=== PATIENT | male | born 1945 | race Caucasian/White ===

== ENCOUNTER 2016-12-14 22:00 | Inpatient (IN) | payer MEDICARE, MEDICAID ==
[~2016-12-14] VITALS: Ht 182.9 cm; Wt 88.4 kg
--- NOTE | ~2016-12-14 | CON ---
PATIENT'S NAME: MONROE CASANOVA [facility] AGE: 71 Y [address] ROOM: [place] [address] [place] [facility] [place] DATE: 12/15/2016 Consultation DISCHARGE DATE: FAMILY PHYSICIAN: Russell Camacho MD ATTENDING PHYSICIAN: SAMMY AVILEZ DATE OF CONSULTATION: 12/15/2016 REFERRING PHYSICIAN: Humza Rincon NEPHROLOGY CONSULTATION REQUESTING PHYSICIAN: Sammy Avilez MD. REASON FOR CONSULTATION: End-stage renal failure patient, on peritoneal dialysis. HISTORY OF PRESENT ILLNESS: The patient is a 71-year-old white male with an endstage renal failure from diabetes and cardiorenal syndrome. He was initially on hemodialysis and unfortunately he had several cardiac arrest episodes and he was switched over to peritoneal dialysis. His peritoneal dialysis was running well until recently he developed hypotensive episode and he had fallen and fractured his ribs on the left side. I saw him in the office approximately a week ago. At that time I saw, he was hypotensive, his antihypertensive medicine had been discontinued. We put him on ProAmatine 10 mg a day and I also started using all 1.5% solution for peritoneal dialysis. The patient was taking quite a bit of narcotics and I advised him to discontinue those narcotics. He felt really poorly over the last couple days. He has very poor appetite and his blood pressure is running systolically in the 80s. He got admitted through the emergency room last night because of generally failure to thrive and low blood pressure. ALLERGIES: ALLERGIC TO HEPARIN. MEDICATIONS: 1. Uloric 40 mg a day. 2. Aspirin 81 mg a day. 3. Tylenol 650 mg q.4 hours p.r.n. 4. Midodrine 10 mg 3 times a day. 5. Colace 100 mg twice a day. 6. Renvela six tablets 3 times a day with food. 7. Vernon-3 fatty acid two tablets every day. 8. Levemir 42 units subcu q.h.s. 9. Calcium carbonate one tablet q.6 hours p.r.n. heartburn. PATIENT'S NAME: MONROE CASANOVA [facility] AGE: 71 Y [address] ROOM: [place] [address] [place] [facility] [place]: 12/15/2016 Consultation DISCHARGE DATE: FAMILY PHYSICIAN: Russell Camacho MD ATTENDING PHYSICIAN: SAMMY AVILEZ PAST MEDICAL HISTORY: 1. End-stage renal failure on peritoneal dialysis. 2. History of cardiac arrest, on hemodialysis. 3. Diabetes mellitus. 4. Chronic congestive heart failure from systolic dysfunction, ejection fraction of 15% to 20%. 5. History of hypertension. 6. History of fall. PAST SURGICAL HISTORY: Peritoneal dialysis catheter placement, tunneled dialysis catheter placement, biventricular AICD placement, renal cell carcinoma, status post ablation. REVIEW OF SYSTEMS: GENERAL: He denies any fever or chills. He has been tired. His reports that he feels cold all the time. HEENT: Denies any sore throat or sinus congestion. CARDIOVASCULAR: Denies any chest pain or dyspnea on exertion. RESPIRATORY: Denies any shortness of breath, cough, or wheezing. GI: Has poor appetite. : He does not make much urine. MUSCULOSKELETAL: He has left-sided rib pain. SKIN: Denies any rash or pruritus. Denies any allergies or hay fever. HEMATOLOGIC/LYMPHATIC: Denies any lymph node enlargement, easy bruising. ENDOCRINE: Denies any heat or cold intolerance. PSYCH: Denies any sadness, crying spells, poor concentration, or panic attack. SOCIAL HISTORY: The patient lives at home with his . He is a nonsmoker and does not drink any alcohol. FAMILY HISTORY: Father had diabetes. Mother had leukemia and diabetes. No history of kidney disease or dialysis. PHYSICAL EXAMINATION: GENERAL APPEARANCE: A 71-year-old, lean and thin white male, lying in the hospital bed, looks pale. VITAL SIGNS: Temperature 97.5, pulse 73, systolic blood pressure 116, diastolic 57. HEAD: Normocephalic. HEENT: Pupils are round, equal, normal eyelids and pale conjunctivae. Oral cavity clear. Dry mucosa. Trachea is central. No thyromegaly. No bruit. HEART: Sounds are audible in all the areas without any gallop or murmur. There is no pericardial rub. Pulse regular rhythm. He has an ICD in the PATIENT'S NAME: MONROE CASANOVA [facility] AGE: 71 Y [address] ROOM: [place] [address] [place]: [facility] [place] DATE: 12/15/2016 Consultation DISCHARGE DATE: FAMILY PHYSICIAN: Russell Camacho MD ATTENDING PHYSICIAN: SAMMY AVILEZ chest, on the left side. ABDOMEN: Soft, nontender. I could not palpate liver or spleen. No abdominal bruit. EXTREMITIES: No clubbing or cyanosis. SKIN: No sign of vasculitis. LYMPHATICS: Did not examine lymphatics. HIGHER PSYCHIATRIC FUNCTION: He has normal speech and memory. LABORATORY DATA: WBC 9.5, hemoglobin 16.7, hematocrit 54.1, and platelet count of 295, glucose 177. BUN of 49, creatinine of 9.5. Sodium 132, potassium 2.9, chloride 93, bicarbonate 23, calcium 8.1, albumin of 2.6, magnesium 1.9, GFR of 5. ASSESSMENT: 1. End-stage renal failure on peritoneal dialysis. 2. Failure to thrive. Most likely, because of his underlying chronic congestive heart from systolic dysfunction as well as uremia. He has also been in a relatively hypotensive. 3. Cylo-pa-pkhungrq dehydration. 4. Hypokalemia. 5. History of fall. 6. Chronic congestive heart failure from systolic dysfunction. 7. Hyperuricemia. PLAN: The patient appears slightly dehydrated. I will use only 1.5% solution for peritoneal dialysis at this time. He already received oral potassium for his hypokalemia. His low systolic blood pressure could be explained by his poor systolic function of the heart. He also check his TSH and adrenal axis. The patient could benefit from physical therapy for strengthening and balance improvement. I would like to thank Dr. Verma for allowing me to participate in this patient's care. M MD ALYSON CHAPARRO/awais /[id number] d: 12/15/16 1845 t: 12/22/16 1040, CONSULTATION REPORT
--- NOTE | ~2016-12-14 | ECHO ---
Transthoracic Echocardiography Report (TTE) Demographics Patient Name MONROE CASANOVA Date of Study 12/16/2016 Patient Number [id number] Visit Number [id number] Date of 1945 Room Number G3215 Accession Number [id number] Gender Male Age 71 year(s) Referring Luzma Bajwa MD Speech Lang Path Charlotte Acevedo RVT Physician Willy Bailey RD, RVT Physician Interpreting Tiffanie Balbuena Basket Mender Physician Trista Lala MD Supervising Ordering Physician Keke Amato PA-C, MD/MLP Nurse Stress Foundry Tender Conclusions Summary Technically difficult exam with suboptimal images. Definity contrast used to evaluate LV apex better. Severely reduced LV systolic function. The estimated left ventricular ejection fraction is 15%. Severe global LV hypokinesis with regional wall motion abnormalities. No evidence of LV apical thrombus. Moderate left ventricular hypertrophy. Diastolic function indeterminate. The left atrium is mildly dilated by LA volume index measurement. Normal right atrial size. Device lead seen in the right atrium. IVC measures 1.2 cm with inspiratory collapse. Suboptimal subcostal window to evaluate the IVC and interatrial septum. Procedure Type of Study TTE procedure:2D Echocardiogram, Echo with Contrast. Procedure Date Date: 12/16/2016 Start: 08:26 AM Study Location: Inpatient Portable Technical Quality: Adequate visualization Indications:Low EF. Patient Status: Routine Contrast Medium: Definity. Amount - 7 ml HR: 70 bpm BP: 115/74 mmHg M-Mode/2D Measurements LV Diastolic Dimension: 4.61 cm LV Systolic Dimension: 4.02 cm LV Septum Diastolic: 1.39 cm LV PW Diastolic: 1.53 cm AV Cusp Separation: 1.3 cm Cardiac Output: 4.12 l/min LA Dimension: 4.3 cm LVOT: 2.2 cm LVOT VTI: 15.5 cm LV Stroke volume: 58.89 ml Doppler Measurements AV Peak Velocity: 0.88 m/s MV Peak E-Wave: 0.69 m/s AV Peak Gradient: 3.1 mmHg AV Mean Gradient: 2 mmHg MV P1/2t: 88 msec LVOT Peak Velocity: 0.9 m/s TR Velocity:2.38 m/s TR Gradient:22.66 mmHg Estimated PASP: 32.66 mmHg Estimated RAP:10 mmHg A' Lateral Velocity: 0.12 m/s Estimated RVSP: 33 mmHg E' Septal Velocity: 0.08 m/s E' Lateral Velocity: 0.05 m/s Findings Left Ventricle Moderate concentric left ventricular hypertrophy. Diastolic function indeterminate. Contrast images show no evidence of apical thrombus. Right Ventricle Normal right ventricle structure and function. Device lead noted in the right ventricle. Left Atrium The left atrium is mildly dilated by LA volume index measurement. Right Atrium Normal right atrial size. Device lead seen in the right atrium. IVC measures 1.2 cm with inspiratory collapse. Mitral Valve Trivial mitral regurgitation by color Doppler. Aortic Valve The aortic valve was not well imaged. Tricuspid Valve Mild tricuspid regurgitation by color Doppler. Pulmonic Valve Pulmonic valve is not well seen. Pericardial Effusion No evidence of pericardial effusion. Miscellaneous Suboptimal subcostal window to evaluate the IVC and interatrial septum. Pleural Effusion Pleural effusion present. Signature dtt: ANANTH BARNARD dtd: 12/16/16 0826 Physician Self Edit
--- NOTE | ~2016-12-14 | HP ---
PATIENT'S NAME: MONROE CASANOVA [facility] AGE: 71 Y [address] ROOM: [address] [address] [place] [facility] [place]: 12/15/2016 History & Physical DISCHARGE DATE: FAMILY PHYSICIAN: Russell Camacho MD ATTENDING PHYSICIAN: ALONDRA AVILEZ DATE OF SERVICE: CHIEF COMPLAINT: Generalized weakness, decreased appetite, runny nose, nausea, and lightheadedness. HISTORY OF PRESENT ILLNESS: This is a 71-year-old male, who says that for the past three weeks, he has been feeling sick in general what he describes as lightheadedness, decreased appetite, runny nose, nausea, malaise, and just not feeling well in general. The patient has a history of end-stage renal disease. Occasionally, he still makes a little urine in a day, and he is on peritoneal dialysis. He has never felt like this before, and he also denies any recent sick contacts. He specifically denies any pain around the peritoneal dialysis area or any fever. However, he does complain of feeling chills for the last three weeks as well. He denies any chest pain, cough, shortness of breath, palpitation, diaphoresis, leg edema, abdominal pain or rigidity, nausea, vomiting, diarrhea, or constipation. He just feels that he does not feel well in general, and he cannot really know what is going on with him. REVIEW OF SYSTEMS: As mentioned in the history of present illness. All other systems were reviewed and are negative except those mentioned in the history of present illness. PAST MEDICAL HISTORY: 1. Heparin-induced thrombocytopenia, type 2. 2. End-stage renal disease, on peritoneal dialysis. 3. History of cardiac arrest on dialysis in the past. 4. Diabetes mellitus, type 2. 5. Chronic systolic heart failure. 6. Hypertension. 7. History of a non-ischemic cardiomyopathy with a left ventricular ejection fraction of 15% to 20%, status post AICD automatic implantable cardioverter-defibrillator implantation. 8. Left heart catheterization in 2012 showed normal coronaries. PAST SURGICAL HISTORY: 1. Currently, on peritoneal dialysis for his end-stage renal disease. PATIENT'S NAME: MONROE CASANOVA [facility] AGE: 71 Y [address] ROOM: [address] [address] [place] [facility] [place]: 12/15/2016 History & Physical DISCHARGE DATE: FAMILY PHYSICIAN: Russell Camacho MD ATTENDING PHYSICIAN: ALONDRA AVILEZ 2. Status post biventricular AICD automatic implantable cardioverter- defibrillator implantation. 3. Renal cell carcinoma, status post ablation. ALLERGIES: HEPARIN, WHICH CAUSES CARDIAC ARREST DURING DIALYSIS AND ALSO CAUSES HEPARIN- INDUCED THROMBOCYTOPENIA, TYPE 2. HOME MEDICATIONS: 1. Tylenol 650 mg p.o. every four hours p.r.n. for pain or fever. 2. Aspirin 81 mg p.o. daily. 3. Calcium carbonate one tablet p.o. every 6 hours p.r.n. for heartburn. 4. Colace 100 mg p.o. b.i.d. 5. Uloric 40 mg p.o. daily. 6. Lasix 80 mg two tablets every morning and Lasix 80 mg one tablet p.o. every evening. 7. Insulin Levemir 42 units subq every night at bedtime. 8. Midodrine 10 mg p.o. daily. 9. [place] fish oil 1000 mg two tablets p.o. every day. 10. Renvela 800 mg six tablets 3 times daily. 11. Castoria 30 mL p.o. b.i.d. SOCIAL HISTORY: He denies any cigarette use or alcohol use or illegal drugs in the past or in the present. FAMILY HISTORY: His father had diabetes and also alcohol use disorder. His mother had leukemia and also diabetes. PHYSICAL EXAMINATION: VITAL SIGNS: At the time of my dictation, blood pressure was 143/73, temperature was 97.6, heart rate was 70, respirations were 14, and saturations were 96% on room air. GENERAL APPEARANCE: Alert and oriented x3, in no acute distress. HEENT: Pupils are equally round and reactive to light. Extraocular muscles are intact. Anicteric sclerae. Nasal turbinates are normal bilaterally. Moist oral mucosa. No oral thrush. No oropharyngeal exudate or erythema. NECK: No JVD jugular venous distention. No neck stiffness. No cervical lymphadenopathy. RESPIRATORY: Clear. Chest wall was nontender to palpation. CARDIOVASCULAR: Regular rate and rhythm. Normal S1 and S2. No murmurs. No rubs. No gallops. SKIN: The AICD automatic implantable cardioverter-defibrillator implantation area is non-tender to touch and also is not erythematous. No ulcer. No PATIENT'S NAME: MONROE CASANOVA [facility] AGE: 71 Y [address] ROOM: [address] [place], [place] [address] [place] [facility] [place]: 12/15/2016 History & Physical DISCHARGE DATE: FAMILY PHYSICIAN: Russell Camacho MD ATTENDING PHYSICIAN: ALONDRA AVILEZ cyanosis. No rash. ABDOMEN: Soft, mildly tender to palpation in the right upper quadrant, and nondistended. No rigidity. Bowel sounds were decreased. No hepatosplenomegaly. No rebound tenderness. There is no tenderness in the area surrounding the peritoneal dialysis site. No findings to suggest peritonitis. EXTREMITIES: No edema in upper or lower extremities. NEUROLOGICAL: Grossly nonfocal. MUSCULOSKELETAL: No joint pain. No muscle pain. Range of motion was intact. LABORATORY DATA: Lactic acid was 2.4. The pH is 7.39. Ammonia of 17. CPK was 157 followed by 150. Troponin is 0.204 followed by 0.204. ProBNP of 46,473. White blood cells of 11.2, hemoglobin of 17.3, hematocrit of 55.3, MCV of 92.3, and platelets of 308. Glucose is 224, BUN is 46, creatinine is 9.5, sodium is 129, potassium is 3.0, chloride is 91, CO2 is 21, calcium is 8.1, total protein is 8.2, albumin is 2.6, AST is 29, ALT is 35, alkaline phosphatase is 82, total bilirubin is 0.7, magnesium is 1.9, GFR glomerular filtration rate is 5, and anion gap is 20. INR was 1.5 and PTT was 31. CK-MB of 5.8 followed by 5.3. TSH thyroid-stimulating hormone was 5.530. CRP C-reactive protein is 0.96. Procalcitonin is 0.65. IMAGING STUDIES: Chest x-ray performed on admission on December 14, 2016, official reading is pending. Based on my review, no gross abnormality. EKG on admission showed a paced rhythm with heart rate at 69 beats per minute. ASSESSMENT AND PLAN: 1. Sepsis secondary to unclear source. I will cover him broadly with IV vancomycin, IV Zosyn, and IV Levaquin for sepsis from unclear source. PATIENT'S NAME: MONROE CASANOVA [facility] AGE: 71 Y [address] ROOM: [address] [place], [place] [address] [place] [facility] [place]: 12/15/2016 History & Physical DISCHARGE DATE: FAMILY PHYSICIAN: Russell Camacho MD ATTENDING PHYSICIAN: ALONDRA AVILEZ Blood culture, two sets right now. I will check a CT of abdomen and pelvis without contrast, given that he has some mild right upper quadrant tenderness and also right lower quadrant tenderness on palpation. I do not think this is peritonitis, given that he has no rigidity, and the area surrounding the peritoneal dialysis site is not tender. The patient is alert and oriented x3, and he looks acutely ill and he looks in mild distress, but not encephalopathic. His blood work does show he has sepsis with elevated lactic acid and also leukocytosis, and also a mildly elevated procalcitonin. However, currently based on the history he gave me and on physical examination, no clear source of infection so far. Therefore, blood culture two sets will be obtained. He will have a broad coverage with the antibiotics as I mentioned before. I will be checking the labs again including lactic acid, procalcitonin, CBC complete blood count with differential, A1c, BMP basic metabolic panel, magnesium, and phosphorus in the morning. I will get a urinalysis and also urine culture. I will check the influenza nasal antigen swab. There is no cough, therefore, I am not going to collect a sputum culture or Gram stain. Further plan depends on clinical course. For the fluids, he is septic. Lungs are clear. X-ray looked clean. In the setting of sepsis and ESRD, we are giving a low rate of IV fluids with the lactated Ringer. Further plan depends on clinical course. 2. Regarding his hypothyroidism: I will start him on the levothyroxine 50 mcg p.o. daily. He does have a cardiac history. Therefore, I do not want to give him a dose that is too high, which can provoke arrhythmia. He needs to have a TSH thyroid-stimulating hormone checked in six weeks as outpatient and titrate the levothyroxine dose by the primary care physician. 3. Regarding his hypokalemia, he has end-stage renal disease. However, potassium is 3.0. I will replace him carefully with the potassium chloride tablet. 4. End-stage renal disease, on peritoneal dialysis. I will consult Nephrology in the morning for dialysis. Currently, the patient is not in volume overload. He is saturating 98% on room air. There is no cough. No shortness of breath. Lungs are clear. Chest x-ray was clear. In the setting of sepsis of unclear source, I will give him IV fluids with lactated Ringer at 50 mL/hr because he is also getting broad-spectrum antibiotics coverage with IV Levaquin and IV Zosyn and IV vancomycin until we have a more definitive source of sepsis. The patient will continue with telemetry monitoring. He has AICD automatic implantable cardioverter defibrillator in place, and the automatic implantable cardioverter-defibrillator does not look infected. There is no tenderness. There is no warmth. There is no erythema. 1. For the lightheadedness, the patient could be dehydrated. Therefore, I will be checking for orthostatic vital signs. The patient will be on fall precaution. PATIENT'S NAME: MONROE CASANOVA [facility] AGE: 71 Y [address] ROOM: [place] [address] [place] [facility] [place]: 12/15/2016 History & Physical DISCHARGE DATE: FAMILY PHYSICIAN: Russell Camacho MD ATTENDING PHYSICIAN: ALONDRA AVILEZ Further plan depends on clinical course. Time spent on the day of admission was 40 minutes including chart review, interviewing and examining the patient, addressing all the questions and concerns that the patient and the patient's had at the bedside, and going over the plan of care with the patient and the patient's . ALONDRA AVILEZ MD CC/modl /[id number] D: T: HISTORY & PHYSICAL
--- NOTE | ~2016-12-14 | ER ---
PATIENT'S NAME: MONROE CASANOVA [facility] AGE: 71 Y [address] ROOM: [place] [address] LOCATION: [facility] ADMIT DATE: 12/15/2016 ER/Outpatient Report DISCHARGE DATE: FAMILY PHYSICIAN: Russell Camacho MD ATTENDING PHYSICIAN: ALONDRA AVILEZ Admission date and time are documented in the medical record. I saw the patient at 2220 hours. CHIEF COMPLAINT: Generalized weakness, lightheadedness, dizziness with positional changes, end- stage renal failure on peritoneal home dialysis, extreme nausea, cold, chills. HISTORY OF PRESENT ILLNESS: This patient is a 71-year-old male from [place], [place]. The patient has been feeling ill for 2-3 weeks. He has had a dwindling course. Denies any cough, shortness of breath, or chest pain. Denies any fever. Does have cold, chills, and some sweats, but no elevated temperature. Does have lightheadedness, dizziness with occasional positional vertigo. No headache, eyes, ears, nose, throat, neck, or spine pain. No abdominal pain. He has extreme nausea, but no vomiting or diarrhea. Does not make urine. Does have end-stage renal disease. Does do home peritoneal dialysis. Again, denies any abdominal pain or fever. No back pain. No joint or muscle swelling, redness, or pain. No skin eruptions or rash. Does have insulin-dependent diabetes mellitus. No other endocrine problems. No psych issues other than some possible depression. No neuro changes. HOME MEDICATIONS: See attached medication list. ALLERGIES: NONE. SOCIAL HISTORY: Nonsmoker and nondrinker. SIGNIFICANT PAST MEDICAL HISTORY: Congestive heart failure, hypertension, valvular heart disease with mitral regurg, pulmonary hypertension, cardiac arrest, end-stage renal disease on peritoneal dialysis, noninsulin dependent diabetes mellitus type 2, systolic congestive heart failure, syncope, near syncope, nonischemic cardiomyopathy, dyslipidemia, and neuropathy. OPERATIONS: Cardiac catheterization, peritoneal dialysis catheter placement, and ICD placement. PATIENT'S NAME: MONROE CASANOVA [facility] AGE: 71 Y [address] ROOM: [place] [address] LOCATION: [facility] ADMIT DATE: 12/15/2016 ER/Outpatient Report DISCHARGE DATE: FAMILY PHYSICIAN: Russell Camacho MD ATTENDING PHYSICIAN: ALONDRA AVILEZ REVIEW OF SYSTEMS: All systems reviewed by me are negative with the exception of those discussed in the history of the present illness. PHYSICAL EXAMINATION: VITAL SIGNS: Temperature 97.2, tympanic, pulse 70, regular, respirations 16, blood pressure 142/71, and O2 sat on room air is 96%. HEAD: Normocephalic. EYES: Extraocular muscles intact. PERRL. Sclerae and conjunctivae clear, nonicteric. EARS: Clear TMs bilaterally. NOSE: Clear. THROAT: Clear. Mucous membranes dry. NECK: No nuchal rigidity. No thyromegaly or cervical adenopathy. LUNGS: Clear. No rales, rhonchi, or wheezes. HEART: Regular. Pulses are palpable. No chest wall or ribcage pain to palpation. ABDOMEN: Soft, nondistended, nontender. Good bowel tones. No organomegaly or abnormal mass palpable. No CVA tenderness. EXTREMITIES: Without peripheral edema, cyanosis, or deformity. NEUROVASCULAR: Intact. SKIN: Clear. No skin eruptions or rash. DIAGNOSTIC DATA: EKG showed pacer rhythm, 100% capture. Chest x-ray showed no acute infiltrate or changes. We will review x-ray with the radiologist. LABORATORY DATA: White count is 11,200, 79 segs, 10 lymphs, 9 monos, 1 eo, hemoglobin is 17.3 with hematocrit 55.3, and platelet count is 308,000. PTT was 31, pro-time was 15.8 with an INR 1.5. CMS showed a low sodium 129, low potassium 3.0, low chloride 91, low CO2 content of 21, elevated anion gap of 20, elevated glucose at 224, low calcium 8.1, elevated BUN of 46, elevated creatinine 9.5, low GFR of 5, and magnesium 1.9. CPK was 157, initial CK-MB was 5.8 with a troponin of 0.20, 2-hour cardiac enzymes showed a CPK of 150, CK-MB of 5.3, with a troponin I of 0.204. CRP was 0.96, TSH was 5.53, pro-BNP was 46,473. Procalcitonin was 0.65, lactate was 2.4. Venous pH was 7.39. Serum ammonia level was 17. IMPRESSION: 1. End-stage renal failure, on home peritoneal dialysis with lightheadedness, dizziness, and occasional positional vertigo. He has hyponatremia with a sodium of 129. He has hypokalemia with a potassium of 3.0. He has hypocalcemia with a calcium of 8.1. BUN is high at 46 with a creatinine 9.5. His GFR is 5. PATIENT'S NAME: MONROE CASANOVA [facility] AGE: 71 Y [address] ROOM: [place] [address] LOCATION: [facility] ADMIT DATE: 12/15/2016 ER/Outpatient Report DISCHARGE DATE: FAMILY PHYSICIAN: Russell Camacho MD ATTENDING PHYSICIAN: ALONDRA AVILEZ 2. Systolic congestive heart failure. Pro-BNP was 46,473. 3. Essential hypertension. 4. Pulmonary hypertension. 5. Valvular heart disease with mitral regurgitation. 6. Nonischemic cardiomyopathy with ejection fraction of 10-15. 7. Syncope with near syncope. 8. Gmc-vqlrvqs-hibvfjupn diabetes mellitus type 2. PLAN: I did get a word that Dr. Rincon the patient's elastic assembler wanted him admitted to the hospital. I did discuss the patient with Dr. Avilez, hospitalist. Dr. Avilez is going to admit the patient to [facility] for further evaluation and treatment. I did start the patient on IV normal saline, fluids at 125 mL an hour. The patient is resting fairly comfortably at this time, but does not feel very good at all. I did discuss my findings and recommendations with the patient and he understands. The patient will be admitted to [facility]. MD PEACE HIGUERA/modl /[id number] d: 12/15/164 t: 12/15/16 183, OUTPATIENT REPORT
--- NOTE | ~2016-12-14 | DS ---
PATIENT'S NAME: MONROE CASANOVA [facility] AGE: 71 Y [address] ROOM: [id number] [place] [address] [address]: [facility] ADMIT DATE: 12/15/2016 Discharge Summary DISCHARGE DATE: 12/16/2016 FAMILY PHYSICIAN: Russell Camacho MD ATTENDING PHYSICIAN: Sammy Segal PRINCIPAL DISCHARGE DIAGNOSIS: Nonischemic cardiomyopathy. SECONDARY DIAGNOSES: 1. End-stage renal disease. 2. Diabetes mellitus, poorly controlled, hemoglobin A1c 8.9. 3. Recent weight loss. 4. Peripheral neuropathy. 5. Anorexia. CONSULTATIONS: Dr. Rincon, Nephrology, on 12/15/2016. PROCEDURES: Echocardiogram shows some reduced EF of 15% with no thrombus. BRIEF HISTORY: Mr. Casanova is a 71-year-old male who has had generalized malaise, lightheadedness, decreased appetite, runny nose, and weight loss of about 10-12 pounds. He was advised by the dialysis nurses that he should present to the emergency room when he came here from [place], [place]. On admission here, he was found to have mildly elevated procalcitonin, a white blood cell count of 11.2, hemoglobin 17.3, and platelets 308. Lactic acid was 2.4, pH 7.39, ammonia was 17. Troponin initially was 0.204 and followed by 0.204. Today, it was repeated and was 0.150. His hemoglobin A1c was 8.9. Pro- BNP was 46,473. The patient was admitted for further observation, management, and treatment. He was started on broad-spectrum antibiotics. Blood cultures are negative to-date. His peritoneal counts were clear yellow and only 50 white blood cells. Abdomen and pelvis CT showed some free fluid and some air, but not any more than might be expected. The patient had his complete blood count this morning showed a normal white blood cell count 7.7, hemoglobin 15.1, hematocrit 48.0, and platelets 276. His phosphorus was 3.4, sodium was 132, potassium 3.5, chloride 96, glucose 162, BUN 49, and creatinine 9.4. The TSH was 5.8. The patient admitted he had stopped taking his thyroid medicine. There was some question based on his symptoms whether he had renal insufficiency. A.m. cortisol was 15.3. The patient has been given referral to outpatient visit with prototype engineer manager prior to this and they were encouraged to follow up with that. After review of data today, Dr. Rincon felt like it sounds as if the patient was ready to go home, his blood pressure was much improved, and he is feeling much better. PATIENT'S NAME: MONROE CASANOVA [facility] AGE: 71 Y [address] ROOM: [place] [address] LOCATION: [facility] ADMIT DATE: 12/15/2016 Discharge Summary DISCHARGE DATE: 12/16/2016 FAMILY PHYSICIAN: Russell Camacho MD ATTENDING PHYSICIAN: Sammy Segal After discussion with Cardiology office regarding the nature of his cardiomyopathy being nonischemic, I advised the patient that he needs to follow up with them as soon as possible so that they can try to optimize management of his severe nonischemic cardiomyopathy. The patient, his significant other, and Dr. Rincon are all in agreement with this plan. I spoke by phone with Dr. Manuel Us who provided the history that his cardiomyopathy was nonischemic type. INSTRUCTIONS AT DISCHARGE: 1. Renal low-fat diet, low-carb ADA. 2. Activities as tolerated. Walking with assistance only. He uses a walker. 3. Follow up with Dr. Rincon as previously planned, Dr. Nathan in [facility] as soon as possible. He should see Russell Camacho, his primary care provider, within a week of discharge. MEDICATIONS AT DISCHARGE: 1. Delflex peritoneal dialysis fluids. 2. Aspirin 81 mg as prior to admission. 3. Docusate 100 mg p.o. twice daily. 4. Uloric 40 mg daily. 5. Gabapentin 100 mg t.i.d. 6. Detemir insulin 42 units at bedtime. 7. Levothyroxine 50 mcg daily. 8. Midodrine 10 mg daily. 9. [place] fish oils daily. 10. Potassium chloride 10 mEq tabs 40 mEq dose. 11. Senna at h.s. for constipation. 12. Renvela 4800 mg 3 times daily with meals. 13. Lactulose 30 mL p.r.n. constipation. 14. Tylenol p.r.n. 15. Lasix 120 mg every morning and 80 mg every p.m. 16. Calcium carbonate p.r.n. CONDITION AT DISCHARGE: Good. Time spent was greater than 30 minutes. VINCENZO WASHINGTON MD LM/awais PATIENT'S NAME: MONROE CASANOVA [facility] AGE: 71 Y [address] ROOM: [place] [address] LOCATION: [facility] ADMIT DATE: 12/15/2016 Discharge Summary DISCHARGE DATE: 12/16/2016 FAMILY PHYSICIAN: uRssell Camacho MD ATTENDING PHYSICIAN: Sammy Segal /[id number] d: 12/17/16 0441 t: 12/19/16 1305, DISCHARGE SUMMARY
[~2016-12-14 22:00] MED LIST: ASPIRIN LO-DOSE81 MG PO; ATIVAN 0.5MG0.5 MG PO; COREG6.25 MG PO; GLUCOPHAGE500 MG PO; NEURONTIN100 MG PO; NORCO 5-325 MG1 TAB PO; PROAIR HFA8.5 GM INH; TRADJENTA5 MG PO; TYLENOL EXTRA500 MG PO; TYLENOL325 MG PO; ULORIC40 MG PO
[2016-12-14 23:09] LABS: LACTATE 2.4 mEq/L (0.50-1.60)
[2016-12-14 23:10] LABS: BASOPHIL # 0.1 K/uL (0.0-0.2); BASOPHIL % 0.4 %; EOSINOPHIL # 0.1 K/uL (0.0-0.5); EOSINOPHIL % 0.7 %; HEMATOCRIT 55.3 % (37.0-53.0); HEMOGLOBIN 17.3 g/dL (11.0-16.0); IMMATURE GRANULOCYTE # 0.2 K/uL (0.0-0.3); IMMATURE GRANULOCYTE % 1.3 %; LYMPHOCYTE # 1.1 K/uL (0.8-4.0); MCH 28.9 pg (27.0-34.0); MCHC 31.3 gm/dL (32.0-36.5); MCV 92.3 fl (83.0-98.0); MONOCYTE % 8.9 %; MPV 9.9 fl (9.4-12.4); NEUTROPHIL # (ANC) 8.8 K/uL (1.4-9.0); NEUTROPHIL % 78.7 %; NRBC % 0 /100WBC (0-0.00); PLATELET COUNT 308 K/uL (150-450); RDW-CV 16.4 % (11.9-14.6); WBC 11.2 K/uL (4.0-11.0)
[2016-12-14 23:12] LABS: RBC 5.99 M/uL (3.50-5.50)
[2016-12-14 23:20] LABS: INR - (THERAPEUTIC) 1.5 (0.9-1.1); PROTIME 15.8 SECONDS (9.6-11.1); PTT 31 SECONDS (25-32)
[2016-12-14 23:37] LABS: ALBUMIN 2.6 gm/dL (3.5-5.0); CALCIUM 8.1 mg/dL (8.5-10.5); MAGNESIUM 1.9 mg/dL (1.3-2.6); TOTAL BILIRUBIN 0.7 mg/dL (0.0-1.5); TOTAL PROTEIN 8.2 g/dL (6.0-8.4)
[2016-12-14 23:38] LABS: CREATININE 9.5 mg/dL (0.6-1.3)
[2016-12-15] MEDS ORDERED: MIDODRINE HCL10 MG PO (02:44)
[2016-12-15] MEDS ORDERED: COLACE100 MG PO (02:45)
[2016-12-15] MEDS ORDERED: RENVELA800 MG PO (02:46)
[2016-12-15] MEDS ORDERED: FISH OIL 1,0001 EAC1 PO (02:46)
[2016-12-15] MEDS ORDERED: LASIX80 MG PO ×2 (02:48→02:50)
[2016-12-15] MEDS ORDERED: LEVEMIR FL100 UNIT/1 SUB-Q (02:51)
[2016-12-15] MEDS ORDERED: TUMS REGULAR ST1 TAB PO (02:54)
[2016-12-15] MEDS ORDERED: CONSTULOSE10 GM/15 M PO (02:54)
[2016-12-15 06:02] LABS: BASOPHIL # 0.1 K/uL (0.0-0.2); BASOPHIL % 0.6 %; EOSINOPHIL # 0.1 K/uL (0.0-0.5); EOSINOPHIL % 1.4 %; HEMATOCRIT 54.1 % (37.0-53.0); HEMOGLOBIN 16.7 g/dL (11.0-16.0); IMMATURE GRANULOCYTE # 0.1 K/uL (0.0-0.3); IMMATURE GRANULOCYTE % 1.3 %; LYMPHOCYTE # 1.4 K/uL (0.8-4.0); LYMPHOCYTE % 14.4 %; MCH 28.8 pg (27.0-34.0); MCHC 30.9 gm/dL (32.0-36.5); MCV 93.3 fl (83.0-98.0); MONOCYTE # 0.9 K/uL (0.0-1.0); MONOCYTE % 9.4 %; MPV 10.2 fl (9.4-12.4); NEUTROPHIL % 72.9 %; NRBC % 0 /100WBC (0-0.00); PLATELET COUNT 295 K/uL (150-450); RDW-CV 16.2 % (11.9-14.6); WBC 9.5 K/uL (4.0-11.0)
[2016-12-15 06:17] LABS: CALCIUM 8.1 mg/dL (8.5-10.5); MAGNESIUM 1.9 mg/dL (1.3-2.6); PHOSPHORUS 4.7 mg/dL (2.5-4.9)
[2016-12-15 06:20] LABS: ANION GAP 18.9 (10.0-19.0); CREATININE 9.5 mg/dL (0.6-1.3); POTASSIUM 2.9 mMol/L (3.7-5.1)
--- NOTE | 2016-12-15 07:11 | NUR ---
SIGNIFICANT EVENT: Patient alert & oriented. 1PA, stand and pivot. Patient does have own walker that spouse will bring. Potassium and chloride are both low, potassium pills given. R) upper abd tender to palpation - CT obtained this morning, waiting for results. IV to R) lateral FA infusing LR at 50. Hx of CHF, peritoneal dialysis, DMII. Patient lives in [place] at home with spouse. IV Zosyn given, Vanco started. Next will be levequin. at bedside. Patien is pleasant and cooperative with cares.
--- NOTE | 2016-12-15 07:20 | NUR ---
Patient to floor from ER at approx 0210. IV bolus of 500 NS. LR ordered to run at 50 mL/hr - pt very nervous about this as he is concerned about exacerbating his CHF. Pt states falling several times over past few months - most recently on the before s [place]. Fall bracelet on. Patient states feeling dizzy, nauseated, lightheaded and weak. Patient and spouse report driving from [place] last night d/t phone converations held yesterday with renal doc and dialysis nurse. Last food was at about 1500 yesterday and drink was at about 1730. Patient has lots over brusing throughout body but especially arms/legs from previous falls. Pleasant and cooperative with cares.
--- NOTE | 2016-12-15 10:33 | NUR ---
Diabetes center note: 0930 Met with patient and spouse to discuss Diabetes. Diabetes Management booklet provided to patient/spouse with the Diabetes Survival Skills Assessment form to complete. Spouse agrees to assist in completing this form. Patient/spouse report that patient is taking Levemir insulin at home, but is not taking any rapid acting insulin, reports diabetes history x20+ years. Current A1C was 8.9 %, discussed overall control and stressed importance of proper glycemic control to futher reduce risks of complications related to heart, eyes, nerves. Patient is testing blood sugars at home, but infrequently tests.
--- NOTE | 2016-12-15 11:15 | NUR ---
Introduced self/role to patient and his significant other, also introduced student Deyanira. Patient is planning to return home and doesn't think they will need any DME. Will continue peritoneal dialysis. Significant Other worked for [employer] and her daughter is an RN. She stated they no longer have HHC in their area but doesn't think it is needed. Wrote my name on his marker board. No anticipate care management needs.
--- NOTE | 2016-12-15 13:17 | NUR ---
Diabetes Center note: Spouse completed the Diabetes Assessment Form, a copy is applied to the chart. Discussed current A1C 8.9 % with spouse and patient. Spouse reported that Patient takes 42 units of Levemir daily at home, dose here is ordered to have Levemir 21 units AND sliding scale. We will need to continue to follow blood sugars and assess need for further insulin adjustments.
[2016-12-15 17:22] LABS: % PERITONEAL FLUID MONO/MACRO 60 % (0-0); % PERITONEAL FLUID NEUT 19 % (0-25); PERITONEAL FLUID TURBIDITY CLEAR (CLEAR)
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
[2016-12-15] MEDS ORDERED: NEURONTIN100 MG PO (18:10)
--- NOTE | 2016-12-16 03:50 | NUR ---
Significant Event: Pt alert and oriented. UP with SBA, gait belt and walker. S/O at bedside and helps with cares, she also shaved pt last night. Pt c/o consitpation and Lactulose given at HS, results of large bm at 0330 this morning. Peritoneal dialysis per dialysis Nurse early this evening. Initial dosed Neurotin as well, which pt states did help his legs. Ac/Hs SSI with no correction at HS. VSS, afebrile. Follow up: Daily wt, and orthostatics this morning.
[2016-12-16 05:23] LABS: BASOPHIL % 0.5 %; EOSINOPHIL # 0.2 K/uL (0.0-0.5); EOSINOPHIL % 2.2 %; HEMOGLOBIN 15.1 g/dL (11.0-16.0); IMMATURE GRANULOCYTE # 0.1 K/uL (0.0-0.3); IMMATURE GRANULOCYTE % 1.6 %; LYMPHOCYTE % 12.7 %; MCH 29.3 pg (27.0-34.0); MCHC 31.5 gm/dL (32.0-36.5); MCV 93.2 fl (83.0-98.0); MONOCYTE # 0.9 K/uL (0.0-1.0); MPV 9.9 fl (9.4-12.4); NEUTROPHIL # (ANC) 5.6 K/uL (1.4-9.0); NRBC % 0 /100WBC (0-0.00); PLATELET COUNT 276 K/uL (150-450); RBC 5.15 M/uL (3.50-5.50); RDW-CV 15.6 % (11.9-14.6); WBC 7.7 K/uL (4.0-11.0)
[2016-12-16 05:42] LABS: ALBUMIN 2.4 gm/dL (3.5-5.0); ANION GAP 17.5 (10.0-19.0); CREATININE 9.4 mg/dL (0.6-1.3); POTASSIUM 3.5 mMol/L (3.7-5.1); TOTAL BILIRUBIN 0.8 mg/dL (0.0-1.5)
--- NOTE | 2016-12-16 12:51 | NUR ---
Diabetes Consult: Visited with the patient this morning regarding his diabetes. He denies any questions or concerns. Blood sugars range from 131-193. He did have one value of 206. Will continue to monitor.
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
[2016-12-16] MEDS ORDERED: DELFLEX PERIT5000 M1 (17:20)
[2016-12-16] MEDS ORDERED: DELFLEX (17:22)
[2016-12-16] MEDS ORDERED: [UNRECOGNIZED DRUG - OTHER] (17:22)
[2016-12-16] MEDS ORDERED: LEVOTHROID (SY50 MCG PO (17:32)
[2016-12-16] MEDS ORDERED: K-TAB 10MEQ10 MEQ PO (17:35)
[2016-12-16] MEDS ORDERED: SENNA8.6 MG PO (17:36)
--- NOTE | 2016-12-16 18:12 | NUR ---
D:Orders received for patient to be dismissed. I:Dismissal instructions were prepared and reviewed with the patient by the virtual nurse using the computer technology. The following information was reviewed with the patient and his spouse: diet and activity recommendations for home, abnormal s/s to monitor for and to report to MD if any occur, home medications/new prescription medications and plans and need for follow up appointments with Dr. Rincon, Dr. Camacho and Dr. Nathan. José Miguel information given to and reviewed with patient and his spouse on the following topics: Preventing Deep Vein Thrombosis, Levothyroxine, DC Instructions for Chronic Kidney Disease, Healthy Meals for Diabetes, Understanding Carbs, Fats and Proteins, Eating Heart Healthy Foods, and Caring for Your Peritoneal Dialysis Catheter and Exit Site. Encouraged patient to call the MD with any questions or concerns. R:The patient and his spouse verbalized understanding of teaching and denied further questions at the time. P:The patient's primary nurse was informed that the dismissal instructions had been completed and was going to take the paperwork and prescriptions in for the patient to have. The patient will be dismissed this evening. Kaity ALONSO
== END 2016-12-16 18:39 | disposition disaster alternative care site (69) | DRG 314 ==
LOC: GMED 22:00 → GMSU 12-15 01:41
PROVIDERS: Emergency Medicine; Internal Medicine; Internal Medicine Nephrology; Nurse Practitioner Family; ADMIT Internal Medicine
PROC: 3E1M39Z Irrigation of Peritoneal Cavity using Dialysate, Percutaneous Approach (ICD-10-PCS; principal; 2016-12-15)
DX: I42.8 Other cardiomyopathies (principal); N18.6 End stage renal disease; I12.0 Hypertensive chronic kidney disease with stage 5 chronic kidney disease or end stage renal disease; I50.22 Chronic systolic (congestive) heart failure; I27.2 Other secondary pulmonary hypertension; E87.1 Hypo-osmolality and hyponatremia; E87.6 Hypokalemia; E11.22 Type 2 diabetes mellitus with diabetic chronic kidney disease; I34.0 Nonrheumatic mitral (valve) insufficiency; Z86.74 Personal history of sudden cardiac arrest; Z95.810 Presence of automatic (implantable) cardiac defibrillator; Z85.528 Personal history of other malignant neoplasm of kidney; Z79.82 Long term (current) use of aspirin; E03.9 Hypothyroidism, unspecified; K59.00 Constipation, unspecified; E11.42 Type 2 diabetes mellitus with diabetic polyneuropathy; E11.65 Type 2 diabetes mellitus with hyperglycemia; R63.0 Anorexia
CPT/HCPCS: C8929; J1956; J2543; J3370; J7030; J7040; J7050; J7120; Q9957

== ENCOUNTER 2017-04-26 23:39 | Inpatient (IN) | payer MEDICARE, MEDICAID ==
[~2017-04-26] VITALS: Ht 182.9 cm; Wt 88.9 kg
--- NOTE | ~2017-04-26 | HP ---
PATIENT'S NAME: MONROE CASANOVA [facility] AGE: 71 Y [address] ROOM: [id number] [place], [place] [address] LOCATION: [facility] ADMIT DATE: 04/26/2017 History & Physical DISCHARGE DATE: 04/27/2017 FAMILY PHYSICIAN: Russell Camacho MD ATTENDING PHYSICIAN: Nazario Alvarenga V DATE OF SERVICE: SAME DAY HISTORY AND PHYSICAL AND DISCHARGE. CHIEF COMPLAINT: Leg pain. HISTORY OF PRESENT ILLNESS: The patient is a 71-year-old male with a past medical history significant for end-stage renal disease, on peritoneal dialysis, as well as a history of cardiac arrest with a defibrillator as well as insulin-dependent diabetes. The patient was at his baseline level. In fact, he saw his extension course counselor earlier in the day. He subsequently was en route back home to [place] from [place], where he saw his extension course counselor. He does have chronic back pain and upon getting up out of the toilet at the rest stop, he developed sudden onset back pain, which was considerably worse than his chronic back pain. He went to the hospital at [facility]. He was complaining of back pain as well as leg pain. He had an extensive workup there, which included a CAT scan of lumbar sacral spine as well as noncontrast CAT scan of his abdomen and pelvis, which showed degenerative spine disease as well as ascites expected for the patient on peritoneal dialysis. Of note, he also had an EKG demonstrating wide complex tachycardia, presumed to be atrial fibrillation, which was new for the patient to the best of my understanding. His electrolyte profile also showed acidosis. He was transferred to [facility] for further evaluation here. Upon his arrival here, the patient was complaining of bilateral leg numbness considerably more pronounced on the right. An evaluation done emergently on the floor was significant for a total absence of pulses in dorsalis pedis, posterior tibial, popliteal, as well as in right femoral artery on the right. I did appreciate a dorsalis pedis pulse on the left. The patient reported absolutely no sensation below his right hip and could not move his legs. Evaluation also showed an EKG showing wide-complex tachycardia at 120 beats per minute. I discussed the appearance of this EKG with Dr. Weston who felt that this is likely atrial fibrillation with aberrancy. At this point, the patient was seen to have acute right lower extremity ischemia, most likely related to an atrial fibrillation and a clot. Vascular Surgery was not available at [facility] nor at [facility] in [place]. I discussed the case with Dr. Wan at [facility] in [place] who agreed to accept the patient. PATIENT'S NAME: MONROE CASANOVA [facility] AGE: 71 Y [address] ROOM: [place] [address] [facility] AD[facility] DATE: 04/26/2017 History & Physical DISCHARGE DATE: 04/27/2017 FAMILY PHYSICIAN: Russell Camacho MD ATTENDING PHYSICIAN: Nazario Alvarenga V However, she requested the patient be evaluated in the ER first. I further discussed the case with Dr. Soria in the ER. He agreed to accept the patient and a transfer by air was arranged. The patient and the reported "severe allergy to heparin" and I did review his prior lab results and appears he may have HIT as related to heparin. As such, he was started on argatroban drip. He was also given IV morphine for pain control and metoprolol for rate control. At that point, his cardiac labs were not as of yet, but at this point, he does have a troponin of 10 and a CPK of 2790. The patient was urgently transferred to [facility]. Time dedicated to this patient encounter is 45 minutes. MD CASSY LEONE/awais /[id number] D: [id number] T: [id number] HISTORY & PHYSICAL
[~2017-04-26 23:39] MED LIST changes: +COLACE100 MG PO; +CONSTULOSE10 GM/15 M PO; +DELFLEX; +DELFLEX PERIT5000 M1; +FISH OIL 1,0001 EAC1 PO; +K-TAB 10MEQ10 MEQ PO; +LASIX80 MG PO; +LEVEMIR FL100 UNIT/1 SUB-Q; +LEVOTHROID (SY50 MCG PO; +MIDODRINE HCL10 MG PO; +RENVELA800 MG PO; +SENNA8.6 MG PO; +TUMS REGULAR ST1 TAB PO; +[UNRECOGNIZED DRUG - OTHER]
[2017-04-27 00:48] LABS: BICARBONATE 14.8 mmol/L (18.0-23.0); PCO2 33 mmHg (35-45); PO2 84 mmHg (80-90)
[2017-04-27 01:03] LABS: BASOPHIL # 0.1 K/uL (0.0-0.2); BASOPHIL % 0.3 %; HEMATOCRIT 54.4 % (37.0-53.0); HEMOGLOBIN 16.9 g/dL (11.0-16.0); IMMATURE GRANULOCYTE # 0.8 K/uL (0.0-0.3); IMMATURE GRANULOCYTE % 4.1 %; LYMPHOCYTE # 0.8 K/uL (0.8-4.0); LYMPHOCYTE % 4.3 %; MCH 31.8 pg (27.0-34.0); MCHC 31.1 gm/dL (32.0-36.5); MCV 102.3 fl (83.0-98.0); MONOCYTE # 0.9 K/uL (0.0-1.0); MONOCYTE % 4.6 %; MPV 9.7 fl (9.4-12.4); NEUTROPHIL # (ANC) 16.2 K/uL (1.4-9.0); NEUTROPHIL % 86.7 %; NRBC % 0.4 /100WBC (0-0.00); PLATELET COUNT 349 K/uL (150-450); RBC 5.32 M/uL (3.50-5.50); RDW-CV 18.4 % (11.9-14.6)
[2017-04-27 01:04] LABS: WBC 18.6 K/uL (4.0-11.0)
[2017-04-27 01:24] LABS: ALBUMIN 2.5 gm/dL (3.5-5.0); ANION GAP 24.7 (10.0-19.0); CALCIUM 8.2 mg/dL (8.5-10.5); POTASSIUM 3.7 mMol/L (3.7-5.1); TOTAL BILIRUBIN 0.4 mg/dL (0.0-1.5); TOTAL PROTEIN 7.5 g/dL (6.0-8.4)
[2017-04-27 01:35] LABS: CREATININE 8.4 mg/dL (0.6-1.3); MAGNESIUM 2.7 mg/dL (1.8-2.6)
[2017-04-27 01:36] LABS: PHOSPHORUS 8.4 mg/dL (2.5-4.9)
== END 2017-04-27 01:30 | disposition hospice, home (50) | DRG 300 ==
LOC: GPCU 23:39
PROVIDERS: ADMIT Internal Medicine
DX: I82.491 Acute embolism and thrombosis of other specified deep vein of right lower extremity (principal); I47.2 Ventricular tachycardia; I48.91 Unspecified atrial fibrillation; Z79.4 Long term (current) use of insulin; Z99.2 Dependence on renal dialysis; M54.9 Dorsalgia, unspecified
CPT/HCPCS: J0883; J2270; J7030

== ENCOUNTER → 2017-04-27 | Outpatient (CLI) | payer MEDICARE, MEDICAID | END | disposition disaster alternative care site (69) | LOC: GAIR 01:47 | DX: M54.9 Dorsalgia, unspecified (principal); E11.9 Type 2 diabetes mellitus without complications; Z95.810 Presence of automatic (implantable) cardiac defibrillator; Z99.2 Dependence on renal dialysis; Z79.4 Long term (current) use of insulin; Z79.899 Other long term (current) drug therapy; Z88.8 Allergy status to other drugs, medicaments and biological substances | CPT/HCPCS: A0422; A0431; A0436; J3010 ==